=== PATIENT | female | born 1960 | race Caucasian/White ===

== ENCOUNTER 2019-04-07 13:30 | Emergency (ER) | payer BC ==
--- NOTE | 2019-04-07 14:25 | EDM.PDOC ---
ED HPI GENERAL MEDICAL PROBLEM - General Chief Complaint: General Stated Complaint: SWELLING UP [id number] Time Seen by Provider: 04/07/19 13:58 Source of Information: Reports: Patient, Family History Limitations: Reports: No Limitations - History of Present Illness INITIAL COMMENTS - FREE TEXT/NARRATIVE: This 58 yo female patient reports to the ED with an acute onset of swelling in her right face, right arm and right leg. The patient reports she has had pain in these areas over the past month. The patient has been working with Dr. Wooten ([facility]) and Dr. Wiseman ([facility]). The patient reports she has had an MRI last week and a number of tests done last week. The patient reports Dr. Wiseman's staff recommended that the patient have me call his office for recommendations for additional lab work. A call was placed to Dr. Wiseman's office. Dr. Wiseman reported that the patient has been seen by him only 1 time. The patient has had multiple x-rays and a MRI of her lower back within the past week. The patient's MRI demonstrated some abnormal changes in her bone marrow and also a Epidural tumor. The patient is supposed to have a biopsy tomorrow in [place]. Dr. Wiseman advised to have a neuro surgical consult if the incontinence is acute. The patient reports she has had incontinence issues over the past month. Onset: Today (swelling to the right side ) Duration: Constant Location: Reports: Face (right sided facial swelling), Upper Extremity, Left ( right arm swelling), Lower Extremity, Right (swelling) Quality: Reports: Other Severity: Moderate Improves with: Reports: None Worsens with: Reports: None Context: Reports: Other Associated Symptoms: Reports: Other Right Leg Pain Score (Numeric/FACES): 3 - Related Data Allergies Allergy/AdvReac Type Severity Reaction Status Date / Time ciprofloxacin Allergy Nausea and Verified 04/07/19 14:35 Vomiting Sulfa (Sulfonamide Allergy Nausea and Verified 04/07/19 14:35 Antibiotics) Vomiting sulfamethoxazole Allergy Nausea and Verified 04/07/19 14:35 [From Bactrim] Vomiting trimethoprim [From Bactrim] Allergy Nausea and Verified 04/07/19 14:35 Vomiting Home Meds: Home Meds Gabapentin [Neurontin] 300 mg PO TID 04/07/19 [History] ED ROS GENERAL - Review of Systems Review Of Systems: ROS reveals no pertinent complaints other than HPI. ED EXAM, GENERAL - Physical Exam Exam: See Below Exam Limited By: No Limitations General Appearance: Alert, WD/WN, Moderate Distress Eye Exam: Right Eye: Other (swelling of the right eyelid), Bilateral Eye: EOMI Ears: Normal External Exam, Normal Canal, Hearing Grossly Normal, Normal TMs Nose: Normal Inspection, Normal Mucosa, No Blood Throat/Mouth: Normal Inspection, Normal Lips, Normal Teeth, Normal Gums, Normal Oropharynx, Normal Voice, No Airway Compromise Head: Atraumatic, Normocephalic Neck: Normal Inspection, Supple, Non-Tender, Full Range of Motion Respiratory/Chest: No Respiratory Distress, Lungs Clear, Normal Breath Sounds, No Accessory Muscle Use, Chest Non-Tender Cardiovascular: Normal Peripheral Pulses, Regular Rate, Rhythm, No Edema, No Gallop, No JVD, No Murmur, No Rub Rectal (Female) Exam: Deferred Back Exam: Normal Inspection, Decreased Range of Motion (due to low back pain) Extremities: Pedal Edema (mild right sided ) Neurological: Alert, Oriented, CN II-XII Intact, Normal Cognition Psychiatric: Normal Affect, Normal Mood Skin Exam: Warm, Dry, Intact, Normal Color, No Rash Lymphatic: No Adenopathy Course - Vital Signs Last Recorded V/S: Last Vital Signs Temp 37.3 C 04/07/19 13:55 Pulse 104 H 04/07/19 15:06 Resp 14 04/07/19 15:06 BP 175/99 H 04/07/19 15:06 Pulse Ox 98 04/07/19 15:06 - Orders/Labs/Meds Orders: Active Orders 24 hr Category Date Time Status CULTURE URINE [RM] Urgent Lab 04/07/19 13:40 Received Dexamethasone Med 04/07/19 15:41 Once 10 mg PO ONETIME ONE Labs: Laboratory Tests 04/07/19 04/07/19 04/07/19 Range/Units 13:40 14:23 14:23 WBC (5.0-10.0) 10^3/uL RBC (4.2-5.4) 10^6/uL Hgb (12.0-16.0) g/dL Hct (37.0-47.0) % MCV (80-100) fL MCH (27.0-34.0) pg MCHC (33.0-35.0) g/dL Plt Count (150-450) 10^3/uL Neut % (Auto) (42.2-75.2) % Lymph % (Auto) (20.5-50.1) % [place] % (Auto) (2-8) % Eos % (Auto) (1.0-3.0) % Baso % (Auto) (0.0-1.0) % D-Dimer, Quantitative 533 H (0-400) ng/mL Sodium (135-145) mmol/L Potassium (3.6-5.0) mmol/L Chloride (101-111) mmol/L Carbon Dioxide (21.0-31.0) mmol/L Anion Gap BUN (7-18) mg/dL Creatinine (0.6-1.3) mg/dL Est Cr Clr Drug Dosing mL/min Estimated GFR (MDRD) BUN/Creatinine Ratio Glucose (74-105) mg/dL Calcium (8.4-10.2) mg/dl Total Bilirubin (0.2-1.0) mg/dL AST (10-42) IU/L ALT (10-60) IU/L Alkaline Phosphatase (42-121) IU/L B-Natriuretic Peptide 60 (0-100) pg/ml Total Protein (6.7-8.2) g/dl Albumin (3.2-5.5) g/dl Globulin Albumin/Globulin Ratio Urine Color Yellow (YELLOW) Urine Appearance Cloudy (CLEAR) Urine pH 7.0 (5.0-9.0) Ur Specific [place] 1.020 (1.005-1.030) Urine Protein Trace H (NEGATIVE) Urine Glucose (UA) Negative (NEGATIVE) Urine Ketones Negative (NEGATIVE) Urine Occult Blood Negative (NEGATIVE) Urine Nitrite Positive H (NEGATIVE) Urine Bilirubin Negative (NEGATIVE) Urine Urobilinogen 1.0 (0.2-1.0) mg/dL Ur Leukocyte Esterase Moderate H (NEGATIVE) Urine RBC 0-5 /HPF Urine WBC 50-75 H (0-5/HPF) /HPF Ur Epithelial Cells Moderate H (NOT SEEN) /HPF Urine Bacteria Many H (0-FEW/HPF) /HPF Urine Mucus Few H (NOT SEEN) /LPF 04/07/19 04/07/19 Range/Units 14:23 14:23 WBC 7.3 (5.0-10.0) 10^3/uL RBC 4.09 L (4.2-5.4) 10^6/uL Hgb 11.5 L D (12.0-16.0) g/dL Hct 36.2 L (37.0-47.0) % MCV 88.5 (80-100) fL MCH 28.1 (27.0-34.0) pg MCHC 31.8 L (33.0-35.0) g/dL Plt Count 305 (150-450) 10^3/uL Neut % (Auto) 58.2 (42.2-75.2) % Lymph % (Auto) 33.8 (20.5-50.1) % [place] % (Auto) 5.6 (2-8) % Eos % (Auto) 1.9 (1.0-3.0) % Baso % (Auto) 0.5 (0.0-1.0) % D-Dimer, Quantitative (0-400) ng/mL Sodium 138 (135-145) mmol/L Potassium 3.4 L (3.6-5.0) mmol/L Chloride 102 (101-111) mmol/L Carbon Dioxide 24.0 (21.0-31.0) mmol/L Anion Gap 15.4 BUN 20 H (7-18) mg/dL Creatinine 0.9 (0.6-1.3) mg/dL Est Cr Clr Drug Dosing 56.36 mL/min Estimated GFR (MDRD) > 60 BUN/Creatinine Ratio 22.22 Glucose 101 (74-105) mg/dL Calcium 9.2 (8.4-10.2) mg/dl Total Bilirubin 0.5 (0.2-1.0) mg/dL AST 37 (10-42) IU/L ALT 21 (10-60) IU/L Alkaline Phosphatase 91 (42-121) IU/L B-Natriuretic Peptide (0-100) pg/ml Total Protein 7.9 (6.7-8.2) g/dl Albumin 3.6 (3.2-5.5) g/dl Globulin 4.3 Albumin/Globulin Ratio 0.84 Urine Color (YELLOW) Urine Appearance (CLEAR) Urine pH (5.0-9.0) Ur Specific [place] (1.005-1.030) Urine Protein (NEGATIVE) Urine Glucose (UA) (NEGATIVE) Urine Ketones (NEGATIVE) Urine Occult Blood (NEGATIVE) Urine Nitrite (NEGATIVE) Urine Bilirubin (NEGATIVE) Urine Urobilinogen (0.2-1.0) mg/dL Ur Leukocyte Esterase (NEGATIVE) Urine RBC /HPF Urine WBC (0-5/HPF) /HPF Ur Epithelial Cells (NOT SEEN) /HPF Urine Bacteria (0-FEW/HPF) /HPF Urine Mucus (NOT SEEN) /LPF Departure - Departure Time of Disposition: 15:43 Disposition: DC/Tfer to [facility] Condition: Fair Clinical Impression: Swelling of right eye, History of multiple myeloma - Discharge Information *PRESCRIPTION DRUG MONITORING PROGRAM REVIEWED*: Not Applicable *COPY OF PRESCRIPTION DRUG MONITORING REPORT IN PATIENT LOW: Not Applicable Forms: Interfacility Transfer EMTALA Care Plan Goals: Discussed the patient's history, examination, lab and CT results with Dr. Crook (Hospitalist with [facility] in [place]). Dr. Crook accepted the patient for continued evaluation and management. The patient was given an oral dose of Dexamethasone while in the ED. The patient will be transported by family to [facility] in [place]. - My Orders Last 24 Hours: My Active Orders 04/07/19 13:40 CULTURE URINE [RM] Urgent 04/07/19 15:41 Dexamethasone 10 mg PO ONETIME ONE - Assessment/Plan Last 24 Hours: My Active Orders 04/07/19 13:40 CULTURE URINE [RM] Urgent 04/07/19 15:41 Dexamethasone 10 mg PO ONETIME ONE
[2019-04-07 14:52] LABS: ANION GAP 15.4; CHLORIDE,CL 102 mmol/L (101-111); SODIUM,NA 138 mmol/L (135-145)
--- NOTE | 2019-04-07 15:35 | CT ---
Clinical history: 58-year-old female who presents with right-sided facial swelling and a history of lymphoma/multiple myeloma with lesions spine, fecal incontinence, and urinary tract infections (one month history right sided facial pain; right extremity pain). Scan technique: Volume acquisition of data emergency unenhanced CT scan of the head and brain obtained while the patient was lying supine on the Siemens multislice scanner [place], [place]. All data archived in the PACS system for storage, reformatting axial/sagittal/coronal planes and study. Interpretation: 1. Multiple punched-out lytic lesions identified throughout the bony calvarium (no pathologic fractures). 2. Symmetric cerebral cortical atrophy with underlying mirror-image normal ventricular system. 3. Ill-defined low density lesions parietal lobes bilaterally characteristic of ischemic infarct or metastatic disease (history lymphoma) and recommend elective MRI follow-up. No sign of acute intracerebral/intraventricular/subarachnoid bleed. 4. No intracranial supratentorial or posterior fossa mass effect. Note: Right Intraorbital, retrobulbar (posterior) lateral soft tissue mass lesion behind the right eye. No adjacent bony destruction. 5. Cerebellum and brainstem unremarkable. 6. Symmetric clear pneumatization of the paranasal and mastoid sinuses. CONCLUSION: Multiple skeletal lesions and right orbital mass. Tiny cerebral abnormalities (ischemic infarct versus tumor). No sign of intracranial mass, hydrocephalus or bleed but recommend unenhanced MRI of the head/brain this high risk patient..
[2019-04-07] MEDS ORDERED: Dexamethasone 4 MG Tab PO ONE (15:41)
== END 2019-04-07 15:59 ==
LOC: DL.ED 13:30
DX: H57.89 Other specified disorders of eye and adnexa (principal); Z85.79 Personal history of other malignant neoplasms of lymphoid, hematopoietic and related tissues; Z79.899 Other long term (current) drug therapy; Z88.1 Allergy status to other antibiotic agents; Z88.2 Allergy status to sulfonamides
CPT/HCPCS: 36415; 70450; 80053; 81001; 83880; 85025; 85379; 87086; 99284; J8540; 87088; 87186

== ENCOUNTER 2022-07-27 15:45 | Emergency (ER) | payer BC ==
[2022-07-27] MEDS ORDERED: Sodium Chloride 0.9% 10 ML Syringe FLUSH PRN (16:52)
[2022-07-27 17:19] LABS: ANION GAP 14.2 mEq/L (7-13)
[2022-07-27] MEDS ORDERED: Potassium Chloride 10 MEQ Tab.ER PO ONE (17:37)
== END 2022-07-27 17:48 | disposition home or self-care (01) ==
LOC: DL.ED 15:45
DX: E87.6 Hypokalemia (principal); Z88.1 Allergy status to other antibiotic agents; Z88.2 Allergy status to sulfonamides; Z79.82 Long term (current) use of aspirin
CPT/HCPCS: 36415; 80048; 99284; J3490